=== PATIENT | female | born 1995 | race Hispanic/Latino ===

== ENCOUNTER 2019-08-22 | Emergency (ER) | payer BC ==
[2019-08-22] MEDS ORDERED: LIPITOR20 M1 PO (17:48)
[2019-08-22] MEDS ORDERED: METFORMIN500 M2 PO (17:48)
[2019-08-22] MEDS ORDERED: AMOX/K CLAV875 M1 PO (18:03)
== END 2019-08-22 18:05 | disposition home or self-care (01) | DRG 125 ==
DX: S00.212A Abrasion of left eyelid and periocular area, initial encounter (principal); E11.9 Type 2 diabetes mellitus without complications; W54.8XXA Other contact with dog, initial encounter; Y92.009 Unspecified place in unspecified non-institutional (private) residence as the place of occurrence of the external cause

== ENCOUNTER 2020-01-24 19:08 | Emergency (ER) | payer OTHER ==
[~2020-01-24] VITALS: Ht 152.4 cm; Wt 81.8 kg
[~2020-01-24 19:08] MED LIST: AMOX/K CLAV875 M1 PO; LIPITOR20 M1 PO; METFORMIN500 M2 PO
[2020-01-24 20:30] VITALS: BP 129/79
== END 2020-01-24 20:30 | disposition home or self-care (01) | DRG 563 ==
LOC: ED 19:08
DX: S93.601A Unspecified sprain of right foot, initial encounter (principal); E11.9 Type 2 diabetes mellitus without complications; X50.0XXA Overexertion from strenuous movement or load, initial encounter; Y93.89 Activity, other specified; Y92.89 Other specified places as the place of occurrence of the external cause; Y99.0 Civilian activity done for income or pay; Z79.84 Long term (current) use of oral hypoglycemic drugs